=== PATIENT | male | born 1960 | race Caucasian/White ===

== ENCOUNTER 2016-08-13 17:13 | Inpatient (IN) ==
[2016-08-13] MEDS ORDERED: ASPIRIN PO STA (18:38)
[2016-08-13] MEDS ORDERED: G.I. COCKTAIL PO ONE (18:43)
[2016-08-13 18:44] LABS: URINE CULTURE NEEDED? NO; URINE MICRO REVIEW NEEDED? NO; URINE SOURCE CLEAN CATCH
[2016-08-13 18:52] LABS: BILIRUBIN URINE NEGATIVE (NEGATIVE); BLOOD URINE NEGATIVE (NEGATIVE); COLOR YELLOW; GLUCOSE URINE NEGATIVE (NEGATIVE); LEUKOCYTES URINE NEGATIVE (NEGATIVE); NITRITE URINE NEGATIVE (NEGATIVE); PH URINE 5.5; PROTEIN URINE NEGATIVE (NEGATIVE); SP GRAVITY URINE 1.006; TURBIDITY URINE CLEAR (CLEAR); UROBILINOGEN URINE NORMAL (NORMAL)
[2016-08-13 18:53] LABS: UR EPITHELIAL CELLS <10 /HPF (<10); URINE BACTERIA NEGATIVE /HPF; URINE RBC <10 /HPF (<10); URINE WBC <10 /HPF (<10)
[2016-08-13 19:29] LABS: AGAP 15; ALBUMIN 3.6 g/dL (3.5-5.0); ALKALINE PHOSPHATASE 86 U/L (32-122); BUN 16 mg/dL (8-22); CALCIUM 9.8 mg/dL (8.8-10.2); CHLORIDE 99 mmol/L (98-107); CK PROFILE 48 U/L (24-204); COSMO 266; GOT 15 U/L (10-34); GPT 18 U/L (10-44); POTASSIUM 4.3 mmol/L (3.5-5.1); SODIUM 132 mmol/L (136-145); TCO2 18 mmol/L (25-35); TOTAL BILIRUBIN 0.31 mg/dL (0.20-1.00); TOTAL PROTEIN 6.7 g/dL (6.3-8.3)
[2016-08-13 19:37] LABS: UR AMPHETAMINES QUAL NONE DETECTED (NONE DETECT); UR BARBITUATES QUAL NONE DETECTED (NONE DETECT); UR BENZODIAZEPIN QUAL NONE DETECTED (NONE DETECT); UR CANNABINOIDS QUAL NONE DETECTED (NONE DETECT); UR COCAINE QUAL NONE DETECTED (NONE DETECT); UR METHADONE QUAL NONE DETECTED (NONE DETECT); UR OPIATES QUAL NONE DETECTED (NONE DETECT); UR OXYCODONE QUAL NONE DETECTED (NONE DETECT); UR PCP QUAL NONE DETECTED (NONE DETECT)
[2016-08-13 19:48] LABS: ACETONE SERUM NEGATIVE (NEGATIVE)
[2016-08-13 20:21] LABS: BASO% 0.6 % (0.0-0.8); EOS# 0.23 X1000 (0.0-0.7); HEMATOCRIT 39.2 % (42.0-52.0); HEMOGLOBIN 13.5 g/dL (14.0-18.0); IMM GRAN# 0.07 X1000 (0.0-0.04); IMM GRAN% 0.6 % (0.0-0.5); LYMPH# 2.38 X1000 (1.2-3.4); LYMPH% 20.4 % (20.5-51.1); MANUAL DIFF NEEDED? YES; MCH 29.9 PG (27-31); MCHC 34.4 g/dL (33-37); MCV 86.9 FL (81-99); MONO# 0.69 X1000 (0.11-0.59); MONO% 5.9 % (1.7-9.3); MPV 9.9 FL (7.4-10.4); NEUT% 70.5 % (42.2-75.2); PLT 343 X1000 (130-400); RBC 4.51 XMIL (4.7-6.1)
[2016-08-13 20:28] LABS: INR 1.01; PROTIME 10.7 Seconds (9.2-11.7)
--- NOTE | 2016-08-13 20:29 | ED EKG INTERP ---
EKG Interpretation - EKG Time of EKG reading by physician:: 17:26 EKG Read and Signed by:: Wilber De Luna EKG Interpretation (*Must complete 3 of following elements*): Abnormal (RBBB) Rate: 107 Rhythm: Wide QRS rhythm with frequent PVC Attestation - Scribe Verification/Attestation Scribe:: Jassi Velasco Acting as Scribe for:: Wilber De Luna Scribe documention review:: This chart was documented by a scribe and accurately reflects the service the provider performed and the decisions made by the provider.
--- NOTE | 2016-08-13 20:57 | Diag Imaging Result Document ---
PROCEDURE NAME: HEAD W/O CONTRAST - 08/13/2016 STUDY: CT brain without contrast. PROTOCOL: Dose reduction protocol. No parenchymal hemorrhage. No epidural or subdural hematoma. No subarachnoid hemorrhage. No mass identified on this noncontrasted exam. No hydrocephalus. No sinus opacification. No air fluid levels. IMPRESSION: No hemorrhage. Negative brain CT without contrast. A preliminary report was given at 7:52 p.m.
[2016-08-13 21:21] LABS: BANDS 2 % (0-1); EOS 4 % (1-10); LYMPHS 16 % (21-51); MONO 2 % (1-9)
[2016-08-13 21:22] LABS: LARGE PLATELETS OCCASIONAL; POLYCHROM OCCASIONAL
--- NOTE | 2016-08-13 22:58 | PROVIDER DOCUMENTATION ---
HPI-Respiratory General - General Chief Complaint: B/P Problems Stated Complaint: Dizziness,Weakness,Low B/P Time Seen by Provider: 08/13/16 18:13 Source: patient, family Allergies/Adverse Reactions: Patient Allergies Allergy/AdvReac Type Severity Reaction Status Date / Time strawberry Allergy Mild SWELLING Verified 08/13/16 17:31 venom-honey bee Allergy Mild SWELLING Verified 08/13/16 17:31 [bee venom (honey bee)] Home Medications: Home Medication List Medication Instructions Recorded Confirmed Last Taken Type Carvedilol [Coreg] 12.5 mg PO BID 08/30/15 08/13/16 08/13/16 07:00 History Glipizide [Glipizide Xl] 5 mg PO DAILY 08/30/15 08/13/16 08/13/16 07:00 History LISINOpril [Prinivil] 10 mg PO HS 08/30/15 08/13/16 08/12/16 20:00 History Metformin HCl [Metformin HCl ER] 850 mg PO TID 08/30/15 08/13/16 08/13/16 12:00 History Carvedilol [Coreg] 12.5 mg PO BID 08/13/16 08/13/16 08/13/16 07:00 History Hum Insulin NPH/Reg Insulin Hm 25 units SQ DAILY 08/13/16 08/13/16 08/13/16 07: 00 History [Novolin 70-30 100 Unit/ml Vial] Lovastatin [Altoprev] 40 mg PO DAILY 08/13/16 08/13/16 08/12/16 20:00 History Sertraline HCl 50 mg PO DAILY 08/13/16 08/13/16 08/13/16 07:00 History - History of Present Illness-Resp Nature of Presenting Problem: 56 year old obese WM with c/o dizziness, lightheadedness, shortness of breath with exertion for 2 week. pt reports he was at work this evening and became weak , dizzy, lightheaded. the nurse with his employer took his BP and it was found to be in the 90-100 systolic. pt reports he was started on insulin for his DM 6 weeks ago and has had diarrhea since that time. pt also c/o headaches on a daily basis intermittent for a month. pt denies any new medications or changes. Quality of Pain: reports: dull (headache) Severity in ED: reports: mild (headache) Onset/Duration: reports: other (see HPI) Timing: reports: still present, constant, getting worse Exposure: reports: unknown cause Cough Quality/Degree: reports: no cough Review of Systems - Adult - REVIEW OF SYSTEMS - ADULT Constitutional: reports: no symptoms reported. denies: chills, fever, fatique Eyes: reports: no symptoms reported. denies: discharge, blurred vision, double vision Ears, Nose, Mouth & Throat: reports: no symptoms reported. denies: ear discharge, ear pain, nose pain, loose teeth, throat pain, throat swelling Cardiovascular: reports: see HPI, irregular heart rate, syncope (near syncope). denies: chest pain, edema, heart murmur, orthopnea, palpitations, poor circulation Respiratory: reports: see HPI, shortness of breath. denies: chronic cough, cough, wheezing Gastrointestinal: reports: see HPI, diarrhea. denies: abdominal pain, hematemesis, constipation, difficulty swallowing, frequent heartburn, nausea, poor appetite, rectal bleeding, vomiting Genitourinary: reports: no symptoms reported. denies: dysuria, hematuria, urgency Musculoskeletal: reports: no symptoms reported. denies: bone pain, joint pain, joint swelling, neck pain Integumentary: reports: no symptoms reported. denies: hives, itching, rash, skin sores/ulcer Neurological: reports: see HPI, dizziness/vertigo, headache/migraines. denies: ataxia, loss of balance, numbness, paresthesia, seizure, slurred speech, syncope , tremors Psychiatric: reports: no symptoms reported, depression Endocrine: reports: no symptoms reported Hematologic/Lymphatic: reports: no symptoms reported. denies: blood clots Allergic/Immunologic: reports: no symptoms reported All Other Systems: Reviewed and Negative Past History - Adult - PAST MEDICAL HISTORY-ADULT Review of Records: reports: Old Records Reviewed, Nursing Assessment Review, Medications Reviewed, Social history reviewed & non-contributory. Major Childhood Illnesses: reports: denies history Cardiovascular: reports: HTN Respiratory: reports: sleep apnea Gastrointestinal: reports: denies history Obstetrical/Gynecological: reports: denies history Genitourinary: reports: denies history Musculoskeletal: reports: denies history Neurological: reports: denies history Psychiatric: reports: depression Endocrine/Immune: reports: Diabetes Diabetes Type: Type 2 Diabetes controlled by:: PO Meds, Insulin Dependent Other Conditions: reports: denies history - PRIOR SURGERIES/PROCEDURES Surgical/Procedure History: reports: appendectomy - IMMUNIZATION STATUS Childhood Immunizations: See Nurse Assessment Flu Vaccine: See Nurse Assessment - FAMILY HISTORY Family History: diabetes, CAD over 55 yo, cancer, sudden , CAD under 55yo, HTN - SOCIAL HISTORY Smoking: quit greater than 1 year, secondhand Substance Use: none/never Alcohol Use Frequency: never Physical Exam-General - PHYSICAL EXAM-ADULT Initial Vital Signs Reviewed: Yes - CONSTITUTIONAL General Appearance: appears well, alert, no apparent distress, obese. negative : mild distress, moderate distress, severe distress, lethargic, slow to respond , obtunded, combative - EYES Eyes: pink conjunctivae. negative: conjuctival exudate, pale conjunctivae, photophobia, sclera injected, scleral icterus, subconjunctival hemorrhage - HEAD, EARS, NOSE, MOUTH & THROAT HENMT: normocephalic/atraumatic, moist mucous membranes, normal ENT inspection - NECK Neck: non-tender, full range of motion, supple, normal inspection. negative: C- spine tenderness, limited range of motion, tender lateral, tender midline - RESPIRATORY Respiratory: chest non-tender, lungs clear, normal breath sounds, no pleuratic chest pain, no respiratory distress, no accessory muscle use. negative: respiratory distress, decreased breath sounds, accessory muscle use, crackles, rales, rhonchi, stridor, wheezing - CARDIOVASCULAR Cardiovascular: normal peripheral pulses, regular rate, rhythm, no edema, no gallop, no JVD, no murmur, tachycardia, extra beats (intermittent trigeminy/ bigeminy, or frequent PVC's that are non-perfusing.). negative: bradycardia, diastolic murmur, systolic murmur, gallop/S3, gallop/S4 - CHEST (BREASTS) Chest/Breast: deferred - GASTROINTESTINAL (ABDOMEN) Abdominal Exam: normal bowel sounds, non tender, soft, no organomegaly, no pulsatile mass. negative: distended, guarding, rigid, rebound, tenderness, hernia, mass, hepatomegaly, spleenomegaly, McBurney's point tenderness, Nieto' s sign, obturator sign, psoas, Rovsing's sign - GENITOURINARY Male Genitalia: deferred Rectal Exam: deferred Hemoccult Exam: deferred - LYMPHATIC Lymphatic: no adenopathy - MUSCULOSKELETAL Back Exam: normal inspection, no CVA tenderness, no vertebral tenderness. negative: CVA tenderness, decreased range of motion, swelling, vertebral tenderness Extremity: normal range of motion, non-tender, normal gait, normal inspection, no pedal edema, no calf tenderness, normal capillary refill. negative: deformity, erythema, inflammation, pulse deficit, pedal edema, slow capillary refill, swelling, tenderness Peripheral Pulses: radial (R): 3+, radial (L): 3+, dorsalis-pedis (R): 3+, dorsalis-pedis (L): 3+ - SKIN Integumentary: normal color, normal turgor, warm/dry. negative: swelling, tenderness, warm - NEUROLOGIC Neurologic: grossly normal, no motor/sensory deficits. negative: focal weakness , motor weakness, sensory deficit, negative romberg's sign, positive romberg's sign - PSYCHIATRIC Psych/Mental Status: normal mood/affect, normal thought content, normal thought process, oriented x 3 Progress - PLAN OF CARE/RESULTS Progress/Plan/Lab Results: Orders Category Date Time Status Cardiac Monitoring DIRECTED Care 08/13/16 18:38 Active Orthostatic Vital Signs NOW Care 08/13/16 18:39 Active Saline Loc NOW Care 08/13/16 18:38 Active CHEST-2 VIEWS [RAD] Stat Exams 08/13/16 18:38 Taken HEAD W/O CONTRAST [CT] Stat Exams 08/13/16 18:39 Draft ACETONE SERUM [CHEM] Stat Lab 08/13/16 17:36 Completed BLOOD CULTURE [BLDCUL] Stat Lab 08/13/16 18:45 Results CBC WITH ELECTRONIC DIFF [HEME] Routine Lab 08/13/16 20:07 Completed CK PROFILE [SP CHEM] Stat Lab 08/13/16 17:36 Completed CK PROFILE [SP CHEM] Stat Lab 08/13/16 21:34 Completed COMPREHENSIVE METABOLIC PANEL [CHEM] Stat Lab 08/13/16 17:36 Completed D-DIMER [CHEM] Stat Lab 08/13/16 20:07 Completed LACTATE, PLASMA [CHEM] Stat Lab 08/13/16 18:45 Completed MAGNESIUM [CHEM] Stat Lab 08/13/16 17:36 Completed PRO B-NATRIURETIC PEPTIDE Stat Lab 08/13/16 17:36 Completed PROTIME WITH INR [COAG] Stat Lab 08/13/16 20:07 Completed PTT [COAG] Stat Lab 08/13/16 20:07 Completed TROPONIN T Stat Lab 08/13/16 17:36 Completed TROPONIN T Stat Lab 08/13/16 21:34 Completed UDS [URINE DRUG SCREEN] Stat Lab 08/13/16 18:43 Completed URINALYSIS W/POSS RFLX CULT [URINALYSIS] Stat Lab 08/13/16 18:29 Completed Aspirin Med 08/13/16 18:38 Discontinued 325 mg PO STAT STA Lido/Ramirez Alk/Al&mg Hydrox [G.i. Cocktail] Med 08/13/16 18:43 Discontinued 30 ml PO NOW ONE EKG [EKG] Stat Ther 08/13/16 18:38 Ordered Orders Category Date Time Status Cardiac Monitoring DIRECTED Care 08/13/16 18:38 Active Orthostatic Vital Signs NOW Care 08/13/16 18:39 Active Saline Loc NOW Care 08/13/16 18:38 Active CHEST-2 VIEWS [RAD] Stat Exams 08/13/16 18:38 Taken HEAD W/O CONTRAST [CT] Stat Exams 08/13/16 18:39 Draft ACETONE SERUM [CHEM] Stat Lab 08/13/16 17:36 Completed BLOOD CULTURE [BLDCUL] Stat Lab 08/13/16 18:45 Results CBC WITH ELECTRONIC DIFF [HEME] Routine Lab 08/13/16 20:07 Completed CK PROFILE [SP CHEM] Stat Lab 08/13/16 17:36 Completed CK PROFILE [SP CHEM] Stat Lab 08/13/16 21:34 Completed COMPREHENSIVE METABOLIC PANEL [CHEM] Stat Lab 08/13/16 17:36 Completed D-DIMER [CHEM] Stat Lab 08/13/16 20:07 Completed LACTATE, PLASMA [CHEM] Stat Lab 08/13/16 18:45 Completed MAGNESIUM [CHEM] Stat Lab 08/13/16 17:36 Completed PRO B-NATRIURETIC PEPTIDE Stat Lab 08/13/16 17:36 Completed PROTIME WITH INR [COAG] Stat Lab 08/13/16 20:07 Completed PTT [COAG] Stat Lab 08/13/16 20:07 Completed TROPONIN T Stat Lab 08/13/16 17:36 Completed TROPONIN T Stat Lab 08/13/16 21:34 Completed UDS [URINE DRUG SCREEN] Stat Lab 08/13/16 18:43 Completed URINALYSIS W/POSS RFLX CULT [URINALYSIS] Stat Lab 08/13/16 18:29 Completed Aspirin Med 08/13/16 18:38 Discontinued 325 mg PO STAT STA Lido/Ramirez Alk/Al&mg Hydrox [G.i. Cocktail] Med 08/13/16 18:43 Discontinued 30 ml PO NOW ONE EKG [EKG] Stat Ther 08/13/16 18:38 Ordered Vital Signs - 24 hr 08/13/16 08/13/16 08/13/16 17:13 18:01 19:05 Pulse Rate 80 140 H Pulse Rate [ 84 Sitting] Pulse Rate [ 90 Standing] Pulse Rate [ 78 Supine] Respiratory 17 26 H Rate Blood Pressure 147/92 131/72 Blood Pressure 145/68 [Sitting] Blood Pressure 122/60 [Standing] Blood Pressure 140/55 [Supine] O2 Sat by Pulse 99 98 Oximetry 08/13/16 08/13/16 20:15 22:15 Pulse Rate 112 H 90 Pulse Rate [ Sitting] Pulse Rate [ Standing] Pulse Rate [ Supine] Respiratory 20 17 Rate Blood Pressure 128/74 111/78 Blood Pressure [Sitting] Blood Pressure [Standing] Blood Pressure [Supine] O2 Sat by Pulse 97 98 Oximetry Reviewed radiology, lab, EKG, H&P with Dr. De Luna, agrees with plan of care, treatment and admission. - XRAY 1 XRAY Study: Chest Impression: Normal - CT/MRI 1 CT Study: Head Impression: Normal (per Dr. Murcia) - CONSULTS/PCP/HOSPITALIST Notification #1 *Consult/PCP/Hospitalist*: Dr. Aparicio Time Discussed: 22:52 Consult Disposition: Will see in ED, Admit Departure - Departure Time of Disposition Order: 22:52 DIAGNOSIS: Shortness of breath Disposition: ADMITTED INPATIENT 09 Certified Medical Emergency: Emergent Condition: Stable Referrals: Joseluis Baptiste [Primary Care Provider] - Attestation - Physician/ LULY Attestation Patient care was provided by Advanced Practice Provider:: Yes Advanced Practice Provider:: Triston Beebe Advanced Practice Provider documentation review:: The Mid-level provider documentation, treatment plan and medical decision making was reviewed by the physician who agrees with all treatment and medical decision making by the MLP.
[2016-08-14] MEDS ORDERED: HUMULIN R SUBQ ONE (02:48)
[2016-08-14] MEDS ORDERED: ZOFRAN IV PRN (02:48)
[2016-08-14] MEDS: TYLENOL PO PRN ×3 (03:01→17:59)
--- NOTE | 2016-08-14 03:50 | HISTORY AND PHYSICAL ---
PRIMARY CARE PHYSICIAN: Dr. Lisandro Baptiste. CHIEF COMPLAINT: Dizziness, shortness of breath, and chest pain x1 day. HISTORY OF PRESENTING ILLNESS: A 56-year-old male with a history of diabetes mellitus type 2, hypertension, and hyperlipidemia who had presented to the emergency department with the complaint of having some dizziness symptoms along with shortness of breath and chest discomfort. He states that it felt like his heart was racing and then had come back to normal. He was evaluated in the ER and due to his presenting symptoms, it was thought that he would need hospitalization for further management. At the time of my examination, he denied any headache, vision changes, nausea, vomiting, diarrhea, hemoptysis, or melena, but complained of chest discomfort and shortness of breath. PAST MEDICAL HISTORY: Includes diabetes mellitus type 2, hypertension, hyperlipidemia. PAST SURGICAL HISTORY: Appendectomy. ALLERGIES: No known drug allergies. CURRENT MEDICATIONS: Listed in the MAR. SOCIAL HISTORY: He is a former smoker. History of social alcohol use. Denies any illicit drug use. FAMILY HISTORY: Positive for coronary artery disease in father. REVIEW OF SYSTEMS: Twelve point review of systems listed as in HPI. Other systems negative. PHYSICAL EXAMINATION: GENERAL: Cooperative, friendly male. He is resting comfortably now. VITAL SIGNS: Pulse 140, respirations 26, blood pressure 131/72, he is saturating 98%. HEENT: Atraumatic, normocephalic. Extraocular movements intact. PERRLA. NECK: Supple. CHEST: Clear to auscultation. CARDIOVASCULAR: Regular rate and rhythm. ABDOMEN: Soft. Positive bowel sounds. EXTREMITIES: No edema. NEUROLOGIC: He is awake, alert, oriented x3. : No bladder distention. SKIN: Warm. LABORATORIES AND STUDIES: WBCs 11.65, hemoglobin 13.5, hematocrit 39.2, platelets 343,000. Sodium 132, potassium 4.3, chloride 99, CO2 is 18, BUN is 16, creatinine is 1.3, glucose is 101. Troponin is 0.01. ASSESSMENT: This is a 56-year-old male with a history of diabetes mellitus type 2, hypertension, and hyperlipidemia who had presented to the emergency department with a 1-day history of having dizziness, shortness of breath, and chest discomfort. The patient will need hospitalization for further management. 1. Chest pain. 2. Tachybrady syndrome. 3. Diabetes mellitus type 2. 4. Hypertension. PLAN: 1. We will admit patient to medical floor with telemetry. 2. Continue with cardiac workup. Check EKG, serial cardiac enzymes. Have patient on aspirin. We will use sublingual nitroglycerin and morphine p.r.n. chest pain. 3. We will consult cardiology for further evaluation of his symptoms. 4. Monitor blood glucose and continue patient on sliding scale insulin regimen. 5. Monitor blood pressure, resume antihypertensive agents. 6. Put patient on DVT prophylaxis with SCDs. 7. We will continue to follow and reassess.
--- NOTE | 2016-08-14 06:52 | Diag Imaging Result Document ---
PROCEDURE NAME: CHEST-2 VIEWS - 08/13/2016 FRONTAL AND LATERAL CHEST, 3 VIEWS: COMPARISON: 08/30/2015. FINDINGS: The lungs are well expanded. The heart is not enlarged. The vessels are not distended. No pneumonia. No pleural effusions. No free air beneath the diaphragm. IMPRESSION: No acute abnormality.
[2016-08-14] MEDS: PRILOSEC PO SCH (06:55)
[2016-08-14] MEDS: ASPIRIN PO SCH (08:30)
[2016-08-14] MEDS ORDERED: HUMALOG SUBQ ONE (09:51)
[2016-08-14] MEDS: HUMALOG SUBQ SCH ×3 (12:58→22:57)
[2016-08-14] MEDS ORDERED: LOVENOX SUBQ SCH (13:30)
--- NOTE | 2016-08-14 14:15 | CONSULTATION ---
DATE OF CONSULTATION: 08/14/2016 REQUESTING PHYSICIAN: Hospitalist Service REASON FOR CONSULTATION: The patient has dizziness, irregular heartbeat, palpitations, chest discomfort. HISTORY OF PRESENT ILLNESS: Mr. Farrar is a 56-year-old male who presents to the emergency room on 08/13/2016 complaining of recurrent episodes of palpitations, dizziness, profound lightheadedness. This has been happening for probably years according to him. However, over the course of the preceding few days prior to his presentation, this had become more noticeable. At the time of presentation, he reported that they had checked his pulse and blood pressure at the workplace, and they noted that his pulse was very irregular, fluctuating quite a bit. Upon presentation, his EKG shows sinus rhythm with very frequent PVCs. They became alarmed and decided to admit the patient to the hospital for further evaluation. His heart rate was probably 110 when he first hit the ER at 9:40 last night. He is feeling much better this morning. He has no additional complaints. PAST MEDICAL HISTORY: Positive for irregular heartbeat for a number of years. He had a cardiac evaluation about 4 years ago, reportedly had an abnormal stress test, and that led to a heart catheterization which was performed by Dr. Mcdonald on 08/09/2012. This study showed normal coronary arteries. He has diabetes mellitus type 2, history of hypertension, history of hyperlipidemia. PAST SURGICAL HISTORY: Positive for appendectomy. SOCIAL HISTORY: He lives by himself. He has been for 25 years. He has 2 grownup children, ages 32 and 27. He was working for [employer]; however, he was laid off about 2 years ago. 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 He has not smoked in over 40 years. He does not drink alcohol. FAMILY HISTORY: Father and a paternal uncle at the age of 49 from heart attacks. REVIEW OF SYSTEMS: He has been complaining of palpitations, dizziness of mild severity, intermittently over the years. The patient has been obese. He has been diagnosed with sleep apnea syndrome and has been using a CPAP mask for the past 2 years. He denies any other major issues on multiple review of systems. HOME MEDICATIONS: At the time of this admission included metformin 850 mg 3 times a day, lovastatin 40 mg daily, lisinopril 10 mg daily, glipizide 5 mg daily, carvedilol 12.5 twice a day, sertraline 50 mg daily, Humulin insulin 70/30 at 25 units daily. ALLERGIES: He is allergic to the honeybee and to strawberries. PHYSICAL EXAMINATION: Blood pressure is 126/100, temperature 97.8, pulse 82, respirations 18. He is obese, awake, alert, oriented, in no distress. The patient weighs 320 pounds. Body mass index is 43.4. HEENT is unremarkable. Chest is fairly clear to auscultation and percussion. Heart sounds are regular and rhythmic with PVCs or extrasystoles. His heart sounds are distant. I do not hear any murmur. Abdomen is obese. There is no hepatomegaly. No abnormalities noted in the abdominal wall. Extremities show good pulses, no edema. Neurologic: He moves all 4 extremities. Follows commands. DIAGNOSTIC DATA: He has had multiple troponin determinations, a total of 4, all of them negative. ProBNP is 164, being normal up to 177. BUN is 16, creatinine 1.3, sodium 132, potassium 4.3. Hemoglobin is 13.5, white count is 11,650. IMPRESSION: 1. The patient presented to the hospital with increasing dizziness and palpitations. He does have an abnormal electrocardiogram that shows sinus rhythm with a right bundle branch block and frequent PVCs. 2. History of hypertension. 3. History of sleep apnea syndrome. 4. Morbidly obese. 5. Diabetes mellitus type 2. RECOMMENDATIONS: At this point in time, we will go ahead and review the echocardiogram that was done this morning. I would suggest to double up on his carvedilol and add diltiazem 180 mg daily to control the PVCs that he is having. Since he had a normal coronary arteriogram about 4 years ago, there is no need to pursue any further testing to evaluate for ischemia. His symptoms have really nothing to do with coronary ischemia and probably relate to this arrhythmia that appears to be very pervasive. We will probably arrange for him to have 30-day DANETTE monitor and will follow him at the office upon discharge. Thank you again for the opportunity to participate in his evaluation. Best regards. MTDD
--- NOTE | 2016-08-14 15:27 | PROGRESS NOTE ---
DATE: 08/14/2016 SUBJECTIVE: The patient is complaining of having shortness of breath with ambulation and his reports having significant dyspnea on exertion. This has been going on for several weeks. No chest pain. OBJECTIVE: Vital Signs: Blood pressure 126/100, pulse of 82, respiration 97.8. General Appearance: Morbidly obese, white male in no acute distress as long as he is at rest. HEENT: Anicteric. Clear conjunctivae. Neck: Supple. No JVD. No bruits. Cardiovascular: S1, S2. Normal rate and rhythm. No murmurs, rubs, or gallops. Pulmonary: Clear to auscultation bilaterally. GI: Soft, nontender, nondistended. Normoactive bowel sounds. Musculoskeletal: No clubbing, cyanosis, or edema. LABORATORY: Sodium 132, potassium 4.3, chloride 99, bicarb 18, BUN 16, creatinine 1.3, glucose 103, calcium 9.8. Liver function tests were within normal limits. Troponin 3 sets were negative. Hematology: White count of 11.63, hemoglobin 13.5, hematocrit of 39.2, platelets of 343,000. RADIOLOGY: CT head was negative for any acute process. Chest x-ray showed no acute abnormalities. ASSESSMENT AND PLAN: This is a 56-year-old morbidly obese male admitted to the hospital for chest pain and dyspnea on exertion. 1. Chest pain and dyspnea on exertion. Troponin 3 sets were negative. The patient seems to be having tachybrady syndrome. Cardiology saw the patient and started him on beta litzy and calcium channel litzy. The patient reports having the echocardiogram in the emergency room. The report is yet available. We will continue to follow the report. If it has not been done he will need an echocardiogram. 2. Diabetes type 2. We will continue on sliding scale insulin. 3. Hyperlipidemia. Continue lovastatin. 4. Depression. Continue Zoloft. 5. Deep vein thrombosis prophylaxis. The patient is on Lovenox. 6. Code status. The patient is a full code.
--- NOTE | 2016-08-14 17:01 | ECHO REPORT ---
ORDER DATE: 08/14/2016 INTERPRETING PHYSICIAN: Dr. Torres REQUESTING PHYSICIAN: CLINICAL INDICATIONS: A 56-year-old male with chest pain, shortness of breath, dizziness, hypertension, hyperlipidemia, morbid obesity, sleep apnea, cardiac arrhythmia. M-MODE MEASUREMENTS: Right ventricle: 2.9 cm. Left ventricle end diastole: 4.8 cm. Left ventricle end systole: 3.0 cm. Posterior wall: 1.0 cm. Interventricular septum: 1.0 cm. Left atrium: 5.0 cm. Aortic root: 3.3 cm. SUMMARY OF 2-DIMENSIONAL IMAGING: The left ventricular chamber appears to be mildly enlarged. The global ejection fraction is estimated at 60%. There are frequent PVCs that make the estimation of ejection fraction somewhat challenging, however, the global ejection fraction is really normal. The right ventricle is within normal range. The aortic valve looks normal. Color flow mapping unremarkable. The mitral valve looks normal. Color flow mapping unremarkable. The tricuspid valve looks normal. Color flow mapping shows no significant regurgitation. The pulmonic valve looks normal. Color flow mapping unremarkable. The inferior vena cava was not visualized. There is no pericardial effusion, masses or thrombus. IMPRESSION: In summary, this study shows: 1. Normal left ventricular contractility. Ejection fraction 60% or better. Frequent PVCs noted. 2. Normal valvular structures. 3. Normal diastolic function. 4. Pulmonary pressure appears to be grossly normal. 5. No pericardial effusion, masses or thrombus. Clinical correlation recommended.
[2016-08-14] MEDS ORDERED: MAALOX PLUS LIQUID PO PRN (17:43)
[2016-08-14] MEDS ORDERED: MEVACOR PO SCH (21:00)
[2016-08-14] MEDS ORDERED: CARDIZEM CD PO SCH (21:00)
[2016-08-14] MEDS ORDERED: PRINIVIL PO SCH (21:00)
[2016-08-14] MEDS ORDERED: COREG PO SCH (21:00)
[2016-08-14] MEDS: COREG PO SCH (22:41)
[2016-08-15] MEDS: PRILOSEC PO SCH (06:06)
[2016-08-15 06:27] LABS: MANUAL DIFF NEEDED? NO
[2016-08-15] MEDS: HUMALOG SUBQ SCH (06:35)
[2016-08-15 06:42] LABS: AGAP 10; BUN 15 mg/dL (8-22); CALCIUM 9.2 mg/dL (8.8-10.2); CHLORIDE 102 mmol/L (98-107); COSMO 275; SODIUM 136 mmol/L (136-145); TCO2 24 mmol/L (25-35)
[2016-08-15 06:53] LABS: BASO% 0.5 % (0.0-0.8); EOS# 0.29 X1000 (0.0-0.7); EOS% 2.8 % (0.0-10.0); HEMATOCRIT 37.6 % (42.0-52.0); HEMOGLOBIN 12.5 g/dL (14.0-18.0); IMM GRAN# 0.03 X1000 (0.0-0.04); IMM GRAN% 0.3 % (0.0-0.5); LYMPH# 2.49 X1000 (1.2-3.4); LYMPH% 23.8 % (20.5-51.1); MCH 29.6 PG (27-31); MCHC 33.2 g/dL (33-37); MCV 88.9 FL (81-99); MONO# 0.77 X1000 (0.11-0.59); MONO% 7.4 % (1.7-9.3); MPV 10.4 FL (7.4-10.4); NEUT% 65.2 % (42.2-75.2); PLT 280 X1000 (130-400); RBC 4.23 XMIL (4.7-6.1)
--- NOTE | 2016-08-15 08:05 | EKG Report ---
Test Performed on : 08/15/2016 06:45:15 AM Test Reason : arrhythmia Blood Pressure : / mmHG Vent. Rate : 070 BPM Atrial Rate : 070 BPM P-R Int : 186 ms QRS Dur : 138 ms QT Int : 442 ms P-R-T Axes : 066 104 017 degrees QTc Int : 477 ms Sinus rhythm. with occasional premature ventricular complexes. Right bundle branch block Abnormal ECG When compared with ECG of 13-AUG-2016 17:26, (Unconfirmed) Sinus rhythm. has replaced Wide QRS rhythm. Vent. rate has decreased BY 37 BPM Confirmed by Cornelio DELUCA, Jaquan Fields ([id number]) on 08/15/2016 4:26:41 PM
[2016-08-15] MEDS: ASPIRIN PO SCH (08:09)
[2016-08-15] MEDS: COREG PO SCH (08:09)
[2016-08-15] MEDS: TYLENOL PO PRN (08:09)
[2016-08-15] MEDS ORDERED: ZOLOFT PO SCH (09:00)
[2016-08-15 09:09] VITALS: BP 110/52
--- NOTE | 2016-08-15 09:32 | EKG Report ---
Test Performed on : 08/13/2016 5:26:23 PM Test Reason : Chest Pain Blood Pressure : / mmHG Vent. Rate : 107 BPM Atrial Rate : 066 BPM P-R Int : 000 ms QRS Dur : 134 ms QT Int : 366 ms P-R-T Axes : 000 104 010 degrees QTc Int : 488 ms Wide QRS rhythm. with frequent premature ventricular complexes. Right bundle branch block Abnormal ECG When compared with ECG of 30-AUG-2015 15:29, Wide QRS rhythm. has replaced Sinus rhythm. Unconfirmed Result
--- NOTE | 2016-08-15 09:38 | PROGRESS NOTE ---
DATE: 08/15/2016 CHIEF COMPLAINT: Dizziness, irregular heartbeat. SUBJECTIVE: Mr. Farrar had an uneventful night. 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 EKG this morning shows sinus rhythm with an isolated PVC. He does have a right bundle branch block pattern. OBJECTIVE: Blood pressure today is 107/50, temperature 98.5, pulse 59, respirations 20. He is awake, alert and oriented, in no distress. HEENT is unremarkable. Chest is clear to auscultation and percussion. Heart sounds are regular and rhythmic. No gallop or murmur. Abdomen is obese, nontender. No mass or hepatomegaly. Extremities showed good pulses. No edema. Neurologic: He moves all 4 extremities. DIAGNOSTIC DATA: Sodium is 136, potassium 4.0, BUN is 15, creatinine 1.2. IMPRESSION: 1. The patient presented with dizziness and palpitations. 2. Abnormal electrocardiogram. 3. Sleep apnea. 4. Morbid obesity. 5.hypertension RECOMMENDATIONS: The patient had frequent PVCs noted. Echocardiogram has been reviewed, and it shows normal left ventricular function. At this point in time, my recommendation is to add Cardizem CD 180 mg to his regimen plus carvedilol 25 mg twice a day and discontinue lisinopril. We will follow him at the office. We will provide him with a 30-day CEV monitor to monitor him at home, and then further intervention will depend on his clinical course. I do not believe this patient is at risk of sudden . We will follow him along. [facility]
--- NOTE | 2016-08-15 10:03 | EKG Report ---
Test Performed on : 08/13/2016 9:44:49 PM Test Reason : ED. Not ordered in [place] Blood Pressure : / mmHG Vent. Rate : 111 BPM Atrial Rate : 036 BPM P-R Int : 000 ms QRS Dur : 134 ms QT Int : 374 ms P-R-T Axes : 000 119 002 degrees QTc Int : 508 ms Wide QRS rhythm. with frequent premature ventricular complexes. Right bundle branch block Left posterior fascicular block Bifascicular block Abnormal ECG No previous ECGs available Unconfirmed Result
--- NOTE | 2016-08-16 09:22 | DISCHARGE SUMMARY ---
ADMISSION DATE: 08/14/2016 DISCHARGE DATE: 08/15/2016 CONSULTATION: Dr. Torres with cardiology. PERTINENT PROCEDURES: Head CT showed no hemorrhage. Negative brain CT. Echocardiogram showed an EF of 60% or better, frequent PVCs noted. DISCHARGE DIAGNOSES: 1. Chest pain and dyspnea on exertion, myocardial infarction ruled out with negative troponin. 2. Palpitations with frequent premature ventricular contractions. Echocardiogram has been reviewed by cardiology. It showed normal left ventricular function. Cardiology recommend Cardizem CD 180 as well as carvedilol b.i.d. and discontinue his lisinopril. Follow him in the office in 30 days and provide him with a cardiac event monitor at his home. 3. Diabetes mellitus type 2. 4. Hyperlipidemia. Continue statin. 5. Depression. Continue Zoloft. HOSPITAL COURSE: Briefly, Mr. Farrar is a 56-year-old male with a history of diabetes mellitus type 2, hypertension, hyperlipidemia, presented to the ED with complaints of having dizziness symptoms along with shortness of breath and chest discomfort. He felt like his heart was racing and then it would come back to normal. He was evaluated in the ED and felt that he needed to be observed for further workup. He was admitted to the medical floor with a cardiology consult. The patient was ruled out for OR with serial cardiac enzymes. Cardiology did an echocardiogram that did show an EF of 60% or better with frequent PVCs noted. Their recommendations were added Cardizem CD 180 mg to his regimen plus carvedilol 25 mg p.o. twice a day and discontinue his lisinopril and follow up in the office and they would provide him with a 30 day cardiac event monitor at his home. Overnight his monitor showed no significant arrhythmia. EKG this a.m. shows sinus rhythm with isolated PVCs. He does have a right bundle branch block pattern. Dr. Stephens has assessed the patient and feels that he is appropriate for discharge home today. DISCHARGE EXAMINATION: Vital signs: Temperature is 98 degrees, respirations 20, heart rate 68, blood pressure is 110/52, O2 is 97% on room air. DISCHARGE MEDICATIONS: 1. Glipizide XL 5 mg p.o. daily. 2. Metformin 850 mg p.o. t.i.d. 3. Novolin 70/30 25 units subcutaneously daily. 4. Lovastatin 40 mg p.o. daily. 5. Zoloft 50 mg p.o. daily. 6. Cardizem CD 180 mg p.o. q.p.m. 7. Coreg 25 mg p.o. b.i.d. 8. Topamax 25 mg p.o. daily. FOLLOWUP: The patient is being discharged home. He will follow up with cardiology in the outpatient setting. They will also send him a 30 day cardiac event monitor. He can follow up with his primary care physician, Dr. Joseluis Baptiste Jr, in 2 weeks. He can return to the ED for any worsening of symptoms. DISCHARGE TIME: Greater than 30 minutes. Dictated by YAMILE Resendiz for Kaylene Stephens MD
== END 2016-08-15 12:24 | disposition home or self-care (01) | DRG 309 ==
LOC: EDBD → ED 17:13 → OBSVTOIN 08-14 06:02 → 4N 08-14 06:02
PROVIDERS: ATTEND Internal Medicine
DX: I49.3 Ventricular premature depolarization (principal); Z68.41 Body mass index [BMI] 40.0-44.9, adult; I10 Essential (primary) hypertension; E66.01 Morbid (severe) obesity due to excess calories; E11.9 Type 2 diabetes mellitus without complications; I45.10 Unspecified right bundle-branch block; E78.5 Hyperlipidemia, unspecified; G47.30 Sleep apnea, unspecified; F32.9 Major depressive disorder, single episode, unspecified; Z79.899 Other long term (current) drug therapy; Z79.84 Long term (current) use of oral hypoglycemic drugs; Z79.4 Long term (current) use of insulin; Z87.891 Personal history of nicotine dependence; Z82.49 Family history of ischemic heart disease and other diseases of the circulatory system
CPT/HCPCS: 36415; 70450; 71020; 80048; 80053; 81001; 82009; 82550; 82948; 83605; 83735; 83880; 84484; 85025; 85379; 85610; 85730; 87040; 93005; 93010; 93306; G0480; J1650; J1815; 80324; 80345; 80346; 80349; 80353; 80358; 80361; 80365; 83992

== ENCOUNTER 2019-01-17 13:27 | Observation (INO) ==
[2019-01-17] MEDS ORDERED: ZOFRAN IV ONE (14:15)
[2019-01-17] MEDS ORDERED: NS 1,000 ML IV ONE ×2 (14:15→16:27)
[2019-01-17] MEDS ORDERED: TORADOL IV ONE (14:15)
[2019-01-17 14:51] LABS: ALLEN TEST YES; BE -2.9 mmoll (-3.0-3.0); BLOOD TYPE ARTERIAL; HCO3-(ACT) 22.6 mmoll (20.0-26.0); METHB 0.8 % (0.0-1.5); O2(CT) 20.9 mL/dL (15.0-23.0); O2HB 94.7 % (95.0-99.0); PCO2(98.6) 34 mmHg (35-45); PO2(98.6) 81 mmHg (60-100); SAMPLE BLOOD; SAO2 96.7 % (95.0-100.0); THB 15.7 g/dL (11.5-17.4)
[2019-01-17 14:52] LABS: MODALITY ROOM AIR
[2019-01-17 14:55] LABS: URINE SOURCE CLEAN CATCH
[2019-01-17 14:58] LABS: INR 0.99; PROTIME 13.2 Seconds (11.0-16.0); PTT 25.2 Seconds (22.3-41.8)
[2019-01-17 15:09] LABS: AGAP 15; ALB/GLOB RATIO 1.4; ALBUMIN 4.2 g/dL (3.5-5.0); ALKALINE PHOSPHATASE 118 U/L (32-122); BUN 18 mg/dL (8-22); CALCIUM 9.9 mg/dL (8.8-10.2); CHLORIDE 99 mmol/L (98-107); CK PROFILE 46 U/L (24-204); COSMO 284; CREATININE 1.4 mg/dL (0.7-1.2); ESTIMATED GFR 52; GLUCOSE 316 mg/dL (70-104); GOT 17 U/L (10-34); GPT 23 U/L (10-44); LIPASE 42 U/L (13-60); MAGNESIUM 1.9 mg/dL (1.5-2.7); POTASSIUM 4.4 mmol/L (3.5-5.1); SODIUM 135 mmol/L (136-145); TCO2 21 mmol/L (25-35); TOTAL BILIRUBIN 0.59 mg/dL (0.20-1.00); TOTAL PROTEIN 7.3 g/dL (6.3-8.3)
--- NOTE | 2019-01-17 15:10 | Diag Imaging Result Doc PS360 ---
EXAM: CT HEAD W/O CONTRAST INDICATION: headache TECHNIQUE: This exam was performed using automated exposure control, adjustment of mA or kV according to patient size, and/or use of iterative reconstruction technique. COMPARISON: 08/13/2016 FINDINGS: There is no definite acute infarct given the limited sensitivity of CT versus MRI. There is no discrete intracranial mass, mass effect, or intracranial hemorrhage. There is trace chronic sphenoid sinus mucosal thickening. Surrounding soft tissues and bony structures are essentially unremarkable, otherwise. IMPRESSION: No evidence of acute intracranial pathology. Electronically signed by Ran Haddad 01/17/2019 3:08 PM
[2019-01-17 15:11] LABS: BILIRUBIN URINE NEGATIVE (NEGATIVE); BLOOD URINE NEGATIVE (NEGATIVE); COLOR YELLOW; GLUCOSE URINE 300 mg/dL (NEGATIVE); KETONE URINE NEGATIVE (NEGATIVE); LEUKOCYTES URINE NEGATIVE (NEGATIVE); NITRITE URINE NEGATIVE (NEGATIVE); PROTEIN URINE 50 mg/dL (NEGATIVE); SP GRAVITY URINE 1.027; TURBIDITY URINE CLEAR (CLEAR); UR EPITHELIAL CELLS <10 /HPF (<10); URINE BACTERIA NEGATIVE /HPF; URINE RBC <10 /HPF (<10); URINE WBC <10 /HPF (<10); UROBILINOGEN URINE NORMAL (NORMAL)
[2019-01-17 15:19] LABS: BASO# 0.05 X1000 (0.0-0.2); BASO% 0.6 % (0.0-0.8); EOS# 0.15 X1000 (0.0-0.7); EOS% 1.8 % (0.0-10.0); HEMATOCRIT 43.3 % (42.0-52.0); HEMOGLOBIN 14.7 g/dL (14.0-18.0); IMM GRAN# 0.02 X1000 (0.0-0.04); IMM GRAN% 0.2 % (0.0-0.5); LYMPH# 2.07 X1000 (1.2-3.4); LYMPH% 24.9 % (20.5-51.1); MCH 29.5 PG (27-31); MCHC 33.9 g/dL (33-37); MCV 86.9 FL (81-99); MONO# 0.64 X1000 (0.11-0.59); MONO% 7.7 % (1.7-9.3); MPV 10.3 FL (7.4-10.4); NEUT# 5.37 X1000 (1.4-6.5); NEUT% 64.8 % (42.2-75.2); PLT 297 X1000 (130-400); RBC 4.98 XMIL (4.7-6.1); RDW 13.7 % (11.5-14.5)
--- NOTE | 2019-01-17 15:29 | Diag Imaging Result Doc PS360 ---
EXAM: FLAT/UPRIGHT ABD/1 VIEW CHEST INDICATION: vomiting, diarrhea and SOB TECHNIQUE: 4 views COMPARISON: 08/13/2016 FINDINGS: There are unremarkable bowel gas and stool patterns. There is no obstructive bowel pattern. There is no evidence of large volume free abdominal gas. There is no evidence of organomegaly. The lungs are grossly clear. There is no discrete pleural fluid collection or pneumothorax. The cardiomediastinal silhouette and central vasculature are grossly unremarkable. IMPRESSION: No evidence of acute pathology by plain radiograph. Electronically signed by Ran Haddad 01/17/2019 3:27 PM
[2019-01-17 15:30] LABS: ACETONE SERUM NEGATIVE (NEGATIVE)
--- NOTE | 2019-01-17 16:15 | EKG Report ---
Test Performed on : 01/17/2019 4:11:51 PM Test Reason : short of breath Blood Pressure : / mmHG Vent. Rate : 069 BPM Atrial Rate : 069 BPM P-R Int : 186 ms QRS Dur : 136 ms QT Int : 440 ms P-R-T Axes : 055 120 048 degrees QTc Int : 471 ms Normal sinus rhythm. Right bundle branch block Left posterior fascicular block Bifascicular block Abnormal ECG When compared with ECG of 01-JUN-2018 15:13, premature ventricular complexes. are no longer present Unconfirmed Result
[2019-01-17] MEDS ORDERED: ZOSYN 4.5 GM in NS 100 ML IV ONE (16:27)
[2019-01-17] MEDS ORDERED: HUMULIN R IV ONE (16:27)
--- NOTE | 2019-01-17 19:02 | PROVIDER DOCUMENTATION ---
This chart was entered by Nick De Luna Scribe, acting as scribe for Preet Alatorre MD. HPI-General Adult - General Source: patient - History of Present Illness -Gen Adult Nature of Presenting Problems: 58 y/o male presents to ED with constant frontal headache, N/V/D, periumbilical pain, subjective fever, chills, and SOB onset 10 days ago. Pt reports he has been unable to keep anything down. Pt denies hx migraines. Pt states he has taken OTC pain relief medications with minimal relief from his symptoms. Pt reports exertion exacerbates his symptoms. Pt states he has extensive family hx NM and he has not had a stress test in several years. Pt is alert and oriented. Location of Pain/Injury: reports: head, abdomen Pain Radiation: reports: no radiation Quality of Pain: reports: aching Severity: reports: mild Onset/Duration: reports: other (10 days ago) Timing: reports: still present Context/Activities at Onset: reports: none Modifying Factors: worse with: exercise Associated Symptoms: reports: diarrhea, fever/chills, headaches, nausea, shortness of breath, vomiting, other (periumbilical pain) Similar Symptoms Previously?: No Recently seen or treated by another doctor?: No <Preet Alatorre - Last Filed: 01/17/19 19:01> <Zachary Toney - Last Filed: 01/17/19 20:46> - General Chief Complaint: General Adult Stated Complaint: CARDOZA,VOMITING,DIARRHEA,NO ENERGY Time Seen by Provider: 01/17/19 13:39 Allergies/Adverse Reactions: Patient Allergies Allergy/AdvReac Type Severity Reaction Status Date / Time strawberry Allergy Mild SWELLING Verified 01/17/19 14:27 venom-honey bee Allergy Mild SWELLING Verified 01/17/19 14:27 [bee venom (honey bee)] Home Medications: Home Medication List Medication Instructions Recorded Confirmed Last Taken Type Glipizide [Glipizide Xl] 5 mg PO DAILY 08/30/15 06/01/18 08/13/16 07:00 History Metformin HCl [Metformin ER 850 mg PO TID 08/30/15 06/01/18 08/13/16 12:00 History Osmotic] Hum Insulin NPH/Reg Insulin Hm 30 units SQ HS 08/13/16 06/01/18 08/13/16 07:00 History [Novolin 70-30 100 Unit/ml Vial] Lovastatin [Altoprev] 40 mg PO DAILY 08/13/16 06/01/18 08/12/16 20:00 History Sertraline HCl 50 mg PO DAILY 08/13/16 06/01/18 08/13/16 07:00 History Carvedilol [Coreg] 25 mg PO BID #60 tablet 08/15/16 06/01/18 Unknown Rx Diltiazem C.d. [Cardizem Cd] 180 mg PO QPM #30 capsule 08/15/16 06/01/18 Unknown Rx Lisinopril 10 mg PO DAILY 06/01/18 06/01/18 Unknown History Cyclobenzaprine [Flexeril] 10 mg PO Q8H PRN #12 tab 08/29/18 Unknown Rx Ibuprofen [Motrin] 400 mg PO Q6H PRN PRN #20 tab 08/29/18 Unknown Rx Methocarbamol [Robaxin-750] 750 mg PO Q4H PRN #15 tab 09/19/18 Unknown Rx Review of Systems - Adult - REVIEW OF SYSTEMS - ADULT Constitutional: reports: chills, fever Eyes: reports: no symptoms reported Ears, Nose, Mouth & Throat: reports: no symptoms reported Cardiovascular: denies: chest pain, palpitations Respiratory: reports: dyspnea on exertion (pt reports it has not worsened over the past several years), shortness of breath. denies: cough Gastrointestinal: reports: abdominal pain (periumbilical), diarrhea, nausea, vomiting Genitourinary: reports: no symptoms reported Musculoskeletal: denies: back pain, joint pain Integumentary: reports: no symptoms reported Neurological: reports: headache/migraines. denies: dizziness/vertigo, seizure Psychiatric: reports: no symptoms reported Endocrine: reports: no symptoms reported Hematologic/Lymphatic: reports: no symptoms reported Allergic/Immunologic: reports: no symptoms reported All Other Systems: Reviewed and Negative <Preet Alatorre - Last Filed: 01/17/19 19:01> Past History - Adult - PAST MEDICAL HISTORY-ADULT Review of Records: reports: Old Records Reviewed, Nursing Assessment Review, Medications Reviewed Major Childhood Illnesses: reports: denies history Cardiovascular: reports: A-Fib, HTN Respiratory: reports: sleep apnea Gastrointestinal: reports: GERD Obstetrical/Gynecological: reports: denies history Genitourinary: reports: denies history Musculoskeletal: reports: denies history Neurological: reports: denies history Psychiatric: reports: anxiety, depression Endocrine/Immune: reports: Diabetes Other Conditions: reports: denies history - PRIOR SURGERIES/PROCEDURES Surgical/Procedure History: reports: appendectomy - IMMUNIZATION STATUS Childhood Immunizations: See Nurse Assessment Flu Vaccine: See Nurse Assessment - FAMILY HISTORY Family History: diabetes, CAD over 55 yo, cancer, sudden , CAD under 55yo, HTN - SOCIAL HISTORY Smoking: quit greater than 1 year Substance Use: none/never Alcohol Use Frequency: never Living Situation: family <Preet Alatorre - Last Filed: 01/17/19 19:01> Physical Exam-General - PHYSICAL EXAM-ADULT Initial Vital Signs Reviewed: Yes - CONSTITUTIONAL General Appearance: appears well, alert, no apparent distress - EYES Eyes: PERRL/EOMI, pink conjunctivae - HEAD, EARS, NOSE, MOUTH & THROAT HENMT: moist mucous membranes, dental decay - NECK Neck: non-tender, full range of motion - RESPIRATORY Respiratory: chest non-tender, lungs clear, normal breath sounds, no pleuratic chest pain, no respiratory distress, no accessory muscle use, increased rate, other (visibly short of breath without respiratory distress) - CARDIOVASCULAR Cardiovascular: normal peripheral pulses, regular rate, rhythm - GASTROINTESTINAL (ABDOMEN) Abdominal Exam: normal bowel sounds, non tender, soft, other (nausea with palpation) - MUSCULOSKELETAL Back Exam: normal inspection, no CVA tenderness, no vertebral tenderness Extremity: normal range of motion, non-tender, normal gait, swelling (1 + pitting edema of bilateral lower extremities) - SKIN Integumentary: normal color, swelling (1 + pitting edema of bilateral lower extremities), other (clammy skin) - NEUROLOGIC Neurologic: grossly normal - PSYCHIATRIC Psych/Mental Status: normal mood/affect, normal thought content, normal thought process, oriented x 3 <Preet Alatorre - Last Filed: 01/17/19 19:01> Progress - PLAN OF CARE/RESULTS Progress/Plan/Lab Results: Vital Signs - 8 hr 01/17/19 13:29 Temperature 98.0 F Pulse Rate 89 Respiratory Rate 20 Blood Pressure 141/89 O2 Sat by Pulse Oximetry 97 Laboratory Results - last 24 hr 01/17/19 13:34 POC Glucose 298 H Active Orders 24 hr Category Date Time Status ED: Orthostatic Vital Signs (E as directed Care 01/17/19 14:17 Active Nursing- Obtain EKG once Care 01/17/19 14:12 Active Saline Loc NOW Care 01/17/19 14:12 Active EKG [EKG] Stat Ther 01/17/19 14:12 Ordered 01/17/19 14:52 Influenza Screen - Final Nasopharyngeal Laboratory Results - last 24 hr 01/17/19 01/17/19 01/17/19 13:34 14:35 14:35 WBC RBC Hgb Hct MCV MCH MCHC RDW Std Deviation Plt Count MPV Immature Gran % (Auto) Neut % (Auto) Lymph % (Auto) Kidder % (Auto) Eos % (Auto) Baso % (Auto) Immature Gran # (Auto) Neut # (Auto) Lymph # (Auto) Kidder # (Auto) Eos # (Auto) Baso # (Auto) PT INR PTT (Actin FS) Specimen Type Sample Site pH pCO2 pO2 HCO3 Base Excess Oxyhemoglobin ABG O2 Sat (Calculated) ABG O2 Saturation ABG Carboxyhemoglobin ABG Methemoglobin Jaquan Test A-a O2 Difference Total Hemoglobin Lactate Blood Gas Modality FiO2 % Sodium Potassium Chloride Carbon Dioxide Anion Gap BUN Creatinine Estimated GFR/1.73 m2 BUN/Creatinine Ratio Glucose POC Glucose 298 H Calculated Osmolality Calcium Magnesium Total Bilirubin AST ALT Alkaline Phosphatase Creatine Kinase Troponin T Wvf-A-Kqejbwuyhdr Pept Total Protein Albumin Globulin Albumin/Globulin Ratio Lipase Plasma Lactate 2.6 H TSH 4.74 H Urine Source Urine Color Urine Turbidity Urine pH Ur Specific [place] Urine Protein Ur Glucose (Stick) Ur Ketones (Stick) Urine Blood Urine Nitrite Urine Bilirubin Urobilinogen Dipstick Urine Leukocytes Urine WBC (Auto) Urine RBC (Auto) U Epithel Cells (Auto) Urine Bacteria (Auto) Acetone Level 01/17/19 01/17/19 01/17/19 14:39 14:39 14:39 WBC 8.30 RBC 4.98 Hgb 14.7 Hct 43.3 MCV 86.9 MCH 29.5 MCHC 33.9 RDW Std Deviation 13.7 Plt Count 297 MPV 10.3 Immature Gran % (Auto) 0.2 Neut % (Auto) 64.8 Lymph % (Auto) 24.9 Kidder % (Auto) 7.7 Eos % (Auto) 1.8 Baso % (Auto) 0.6 Immature Gran # (Auto) 0.02 Neut # (Auto) 5.37 Lymph # (Auto) 2.07 Kidder # (Auto) 0.64 H Eos # (Auto) 0.15 Baso # (Auto) 0.05 PT INR PTT (Actin FS) Specimen Type Sample Site pH pCO2 pO2 HCO3 Base Excess Oxyhemoglobin ABG O2 Sat (Calculated) ABG O2 Saturation ABG Carboxyhemoglobin ABG Methemoglobin Jaquan Test A-a O2 Difference Total Hemoglobin Lactate Blood Gas Modality FiO2 % Sodium 135 L Potassium 4.4 Chloride 99 Carbon Dioxide 21 L Anion Gap 15 BUN 18 Creatinine 1.4 H Estimated GFR/1.73 m2 52 BUN/Creatinine Ratio 13 Glucose 316 H POC Glucose Calculated Osmolality 284 Calcium 9.9 Magnesium 1.9 Total Bilirubin 0.59 AST 17 ALT 23 Alkaline Phosphatase 118 Creatine Kinase 46 Troponin T Pcq-O-Eknaqxobvlx Pept 25 Total Protein 7.3 Albumin 4.2 Globulin 3.1 Albumin/Globulin Ratio 1.4 Lipase 42 Plasma Lactate TSH Urine Source Urine Color Urine Turbidity Urine pH Ur Specific [place] Urine Protein Ur Glucose (Stick) Ur Ketones (Stick) Urine Blood Urine Nitrite Urine Bilirubin Urobilinogen Dipstick Urine Leukocytes Urine WBC (Auto) Urine RBC (Auto) U Epithel Cells (Auto) Urine Bacteria (Auto) Acetone Level NEGATIVE 01/17/19 01/17/19 01/17/19 14:39 14:39 14:42 WBC RBC Hgb Hct MCV MCH MCHC RDW Std Deviation Plt Count MPV Immature Gran % (Auto) Neut % (Auto) Lymph % (Auto) Kidder % (Auto) Eos % (Auto) Baso % (Auto) Immature Gran # (Auto) Neut # (Auto) Lymph # (Auto) Kidder # (Auto) Eos # (Auto) Baso # (Auto) PT 13.2 INR 0.99 PTT (Actin FS) 25.2 Specimen Type ARTERIAL Sample Site L RADIAL pH 7.40 pCO2 34 L pO2 81 HCO3 22.6 Base Excess -2.9 Oxyhemoglobin 94.7 L ABG O2 Sat (Calculated) 20.9 ABG O2 Saturation 96.7 ABG Carboxyhemoglobin 1.30 ABG Methemoglobin 0.8 Jaquan Test YES A-a O2 Difference 26.0 Total Hemoglobin 15.7 Lactate 2.80 H Blood Gas Modality ROOM AIR FiO2 % 21.0 Sodium Potassium Chloride Carbon Dioxide Anion Gap BUN Creatinine Estimated GFR/1.73 m2 BUN/Creatinine Ratio Glucose POC Glucose Calculated Osmolality Calcium Magnesium Total Bilirubin AST ALT Alkaline Phosphatase Creatine Kinase Troponin T < 0.010 Ysq-X-Zpsfoacemcv Pept Total Protein Albumin Globulin Albumin/Globulin Ratio Lipase Plasma Lactate TSH Urine Source Urine Color Urine Turbidity Urine pH Ur Specific [place] Urine Protein Ur Glucose (Stick) Ur Ketones (Stick) Urine Blood Urine Nitrite Urine Bilirubin Urobilinogen Dipstick Urine Leukocytes Urine WBC (Auto) Urine RBC (Auto) U Epithel Cells (Auto) Urine Bacteria (Auto) Acetone Level 01/17/19 14:49 WBC RBC Hgb Hct MCV MCH MCHC RDW Std Deviation Plt Count MPV Immature Gran % (Auto) Neut % (Auto) Lymph % (Auto) Kidder % (Auto) Eos % (Auto) Baso % (Auto) Immature Gran # (Auto) Neut # (Auto) Lymph # (Auto) Kidder # (Auto) Eos # (Auto) Baso # (Auto) PT INR PTT (Actin FS) Specimen Type Sample Site pH pCO2 pO2 HCO3 Base Excess Oxyhemoglobin ABG O2 Sat (Calculated) ABG O2 Saturation ABG Carboxyhemoglobin ABG Methemoglobin Jaquan Test A-a O2 Difference Total Hemoglobin Lactate Blood Gas Modality FiO2 % Sodium Potassium Chloride Carbon Dioxide Anion Gap BUN Creatinine Estimated GFR/1.73 m2 BUN/Creatinine Ratio Glucose POC Glucose Calculated Osmolality Calcium Magnesium Total Bilirubin AST ALT Alkaline Phosphatase Creatine Kinase Troponin T Vky-A-Rlcvkcnmpcf Pept Total Protein Albumin Globulin Albumin/Globulin Ratio Lipase Plasma Lactate TSH Urine Source CLEAN CATCH Urine Color YELLOW Urine Turbidity CLEAR Urine pH 6.0 Ur Specific [place] 1.027 Urine Protein 50 A Ur Glucose (Stick) 300 A Ur Ketones (Stick) NEGATIVE Urine Blood NEGATIVE Urine Nitrite NEGATIVE Urine Bilirubin NEGATIVE Urobilinogen Dipstick NORMAL Urine Leukocytes NEGATIVE Urine WBC (Auto) <10 Urine RBC (Auto) <10 U Epithel Cells (Auto) <10 Urine Bacteria (Auto) NEGATIVE Acetone Level Influenza A and B are negative. The orthostatic vital signs were positive. Result Diagrams: 01/17/19 14:39 01/17/19 14:39 - REASSESSMENT Reassessment #1 Time Reassessed: 16:33 Status: improving (States feels better, but lactate is 2.8 and BP is 91/50 with him siting in bed. Will give a second IVF bolus and check CT A/P. He has been cultured, has a sinus infection, but will give Zosyn for likely GI cause of illness.) Reassessment Comment: No SIRS criteria, lactate elevation likely d/t metformin use - EKG 1 Time of EKG reading by physician:: 16:21 EKG Read and Signed by:: Preet Alatorre EKG Interpretation (*Must complete 3 of following elements*): Abnormal Rate: 69 Rhythm: NSR [place]: normal QRS: RBB, other (L posterior fascicular block; bifascicular block) DC Interval: normal ST Wave: normal Prior EKG Comparison: changes noted (Improved from prior. 06/01/18. -Dr. Alatorre) Comments: Artifact present. -Dr. Alatorre - XRAY 1 XRAY Study: Abdomen Impression: See EMR Report ([facility] - [address] [facility], [address], [place] [address] [facility] - [address] [place] [address] Department of Imaging Patient: MONA RAMIREZ [facility] Date: 01/17/19#: [id number] : 1960DM Status: REG ERAcct#: [id number] Age/Sex: 58/MRoom/Bed: Loc: ED Ordering Physician: Preet Alatorre MD Family Physician: Joseluis Baptiste Jr, MD Reason for Procedure: vomiting, diarrhea and SOB Signed EXAM: FLAT/UPRIGHT ABD/1 VIEW CHEST INDICATION: vomiting, diarrhea and SOB TECHNIQUE: 4 views COMPARISON: 08/13/2016 FINDINGS: There are unremarkable bowel gas and stool patterns. There is no obstructive bowel pattern. There is no evidence of large volume free abdominal gas. There is no evidence of organomegaly. The lungs are grossly clear. There is no discrete pleural fluid collection or pneumothorax. The cardiomediastinal silhouette and central vasculature are grossly unremarkable. IMPRESSION: No evidence of acute pathology by plain radiograph. Electronically signed by Ran Haddad 01/17/2019 3:27 PM 01/17/19 1527 Interpreting Physician: Ran Haddad MD Dictated Date/Time: 01/17/19 1526 cc: Preet Alatorre MD; Joseluis Baptiste Jr, MD) - CT/MRI 1 CT Study: Head Impression: See EMR Report ([facility] - [address] [facility], [address], [place] [address] [facility] - [address] , [place] [address] Department of Imaging [facility] Date: 01[facility]17[facility]#: [id number] : 1960DM Status: REG ERAcct#: [id number] Age/Sex: 58/MRoom/Bed: Loc: ED Ordering Physician: Preet Alatorre MD Family Physician: Joseluis Baptiste Jr, MD Reason for Procedure: headache Signed EXAM: CT HEAD W/O CONTRAST INDICATION: headache TECHNIQUE: This exam was performed using automated exposure control, adjustment of mA or kV according to patient size, and/or use of iterative reconstruction technique. COMPARISON: 08/13/2016 FINDINGS: There is no definite acute infarct given the limited sensitivity of CT versus MRI. There is no discrete intracranial mass, mass effect, or intracranial hemorrhage. There is trace chronic sphenoid sinus mucosal thickening. Surrounding soft tissues and bony structures are essentially unremarkable, otherwise. IMPRESSION: No evidence of acute intracranial pathology. Electronically signed by Ran Haddad 01/17/2019 3:08 PM 01/17/19 1508 Interpreting Physician: Ran Haddad MD Dictated Date/Time: 01/17/19 1504 cc: Preet Alatorre MD; Joseluis Baptiste Jr, MD) 2 CT Study: Abdomen, Pelvis Impression: See EMR Report - CHANGE OF SHIFT REPORT (ED Provider) 1 Report Given and Care Transferred to:: Feng Time of Transfer: 19:02 Items Pending: CT/MRI Results <Preet Alatorre - Last Filed: 01/17/19 19:01> - PLAN OF CARE/RESULTS Progress/Plan/Lab Results: Vital Signs - 8 hr 01/17/19 13:29 01/17/19 15:30 01/17/19 15:31 Temperature 98.0 F Pulse Rate 89 Pulse Rate [Sitting] Pulse Rate [Standing] Pulse Rate [Supine] Respiratory Rate 20 Blood Pressure 141/89 116/71 108/65 Blood Pressure [Sitting] Blood Pressure [Standing] Blood Pressure [Supine] O2 Sat by Pulse Oximetry 97 93 L 95 01/17/19 15:33 01/17/19 15:34 01/17/19 16:00 Temperature Pulse Rate Pulse Rate [Sitting] 76 Pulse Rate [Standing] 78 Pulse Rate [Supine] 72 Respiratory Rate Blood Pressure 91/60 Blood Pressure [Sitting] 108/65 Blood Pressure [Standing] 91/60 Blood Pressure [Supine] 116/71 O2 Sat by Pulse Oximetry 96 95 01/17/19 17:00 01/17/19 17:16 01/17/19 17:20 Temperature Pulse Rate Pulse Rate [Sitting] Pulse Rate [Standing] Pulse Rate [Supine] Respiratory Rate Blood Pressure 118/72 Blood Pressure [Sitting] Blood Pressure [Standing] Blood Pressure [Supine] O2 Sat by Pulse Oximetry 95 97 96 01/17/19 17:30 01/17/19 17:32 01/17/19 17:40 Temperature Pulse Rate Pulse Rate [Sitting] Pulse Rate [Standing] Pulse Rate [Supine] Respiratory Rate Blood Pressure 113/76 Blood Pressure [Sitting] Blood Pressure [Standing] Blood Pressure [Supine] O2 Sat by Pulse Oximetry 96 96 96 01/17/19 18:23 01/17/19 18:30 01/17/19 18:32 Temperature Pulse Rate Pulse Rate [Sitting] Pulse Rate [Standing] Pulse Rate [Supine] Respiratory Rate Blood Pressure 122/67 Blood Pressure [Sitting] Blood Pressure [Standing] Blood Pressure [Supine] O2 Sat by Pulse Oximetry 93 L 96 95 01/17/19 18:40 01/17/19 18:50 01/17/19 19:00 Temperature Pulse Rate Pulse Rate [Sitting] Pulse Rate [Standing] Pulse Rate [Supine] Respiratory Rate Blood Pressure Blood Pressure [Sitting] Blood Pressure [Standing] Blood Pressure [Supine] O2 Sat by Pulse Oximetry 96 96 96 01/17/19 19:02 01/17/19 19:10 01/17/19 19:20 Temperature Pulse Rate Pulse Rate [Sitting] Pulse Rate [Standing] Pulse Rate [Supine] Respiratory Rate Blood Pressure 114/71 Blood Pressure [Sitting] Blood Pressure [Standing] Blood Pressure [Supine] O2 Sat by Pulse Oximetry 96 96 96 01/17/19 19:30 01/17/19 19:32 01/17/19 20:44 Temperature Pulse Rate Pulse Rate [Sitting] 69 Pulse Rate [Standing] 75 Pulse Rate [Supine] 68 Respiratory Rate Blood Pressure 139/70 Blood Pressure [Sitting] 149/84 Blood Pressure [Standing] 135/91 Blood Pressure [Supine] 143/85 O2 Sat by Pulse Oximetry 97 96 01/17/19 14:52 Influenza Screen - Final Nasopharyngeal Laboratory Results - last 24 hr 01/17/19 01/17/19 01/17/19 13:34 14:35 14:35 WBC RBC Hgb Hct MCV MCH MCHC RDW Std Deviation Plt Count MPV Immature Gran % (Auto) Neut % (Auto) Lymph % (Auto) Kidder % (Auto) Eos % (Auto) Baso % (Auto) Immature Gran # (Auto) Neut # (Auto) Lymph # (Auto) Kidder # (Auto) Eos # (Auto) Baso # (Auto) PT INR PTT (Actin FS) Specimen Type Sample Site pH pCO2 pO2 HCO3 Base Excess Oxyhemoglobin ABG O2 Sat (Calculated) ABG O2 Saturation ABG Carboxyhemoglobin ABG Methemoglobin Jaquan Test A-a O2 Difference Total Hemoglobin Lactate Blood Gas Modality FiO2 % Sodium Potassium Chloride Carbon Dioxide Anion Gap BUN Creatinine Estimated GFR/1.73 m2 BUN/Creatinine Ratio Glucose POC Glucose 298 H Calculated Osmolality Calcium Magnesium Total Bilirubin AST ALT Alkaline Phosphatase Creatine Kinase Troponin T Ema-M-Qdlgfarvpnt Pept Total Protein Albumin Globulin Albumin/Globulin Ratio Lipase Plasma Lactate 2.6 H TSH 4.74 H Urine Source Urine Color Urine Turbidity Urine pH Ur Specific [place] Urine Protein Ur Glucose (Stick) Ur Ketones (Stick) Urine Blood Urine Nitrite Urine Bilirubin Urobilinogen Dipstick Urine Leukocytes Urine WBC (Auto) Urine RBC (Auto) U Epithel Cells (Auto) Urine Bacteria (Auto) Acetone Level 01/17/19 01/17/19 01/17/19 14:39 14:39 14:39 WBC 8.30 RBC 4.98 Hgb 14.7 Hct 43.3 MCV 86.9 MCH 29.5 MCHC 33.9 RDW Std Deviation 13.7 Plt Count 297 MPV 10.3 Immature Gran % (Auto) 0.2 Neut % (Auto) 64.8 Lymph % (Auto) 24.9 Kidder % (Auto) 7.7 Eos % (Auto) 1.8 Baso % (Auto) 0.6 Immature Gran # (Auto) 0.02 Neut # (Auto) 5.37 Lymph # (Auto) 2.07 Kidder # (Auto) 0.64 H Eos # (Auto) 0.15 Baso # (Auto) 0.05 PT INR PTT (Actin FS) Specimen Type Sample Site pH pCO2 pO2 HCO3 Base Excess Oxyhemoglobin ABG O2 Sat (Calculated) ABG O2 Saturation ABG Carboxyhemoglobin ABG Methemoglobin Jaquan Test A-a O2 Difference Total Hemoglobin Lactate Blood Gas Modality FiO2 % Sodium 135 L Potassium 4.4 Chloride 99 Carbon Dioxide 21 L Anion Gap 15 BUN 18 Creatinine 1.4 H Estimated GFR/1.73 m2 52 BUN/Creatinine Ratio 13 Glucose 316 H POC Glucose Calculated Osmolality 284 Calcium 9.9 Magnesium 1.9 Total Bilirubin 0.59 AST 17 ALT 23 Alkaline Phosphatase 118 Creatine Kinase 46 Troponin T Ulj-Z-Pwqrfhqrcfz Pept 25 Total Protein 7.3 Albumin 4.2 Globulin 3.1 Albumin/Globulin Ratio 1.4 Lipase 42 Plasma Lactate TSH Urine Source Urine Color Urine Turbidity Urine pH Ur Specific [place] Urine Protein Ur Glucose (Stick) Ur Ketones (Stick) Urine Blood Urine Nitrite Urine Bilirubin Urobilinogen Dipstick Urine Leukocytes Urine WBC (Auto) Urine RBC (Auto) U Epithel Cells (Auto) Urine Bacteria (Auto) Acetone Level NEGATIVE 01/17/19 01/17/19 01/17/19 14:39 14:39 14:42 WBC RBC Hgb Hct MCV MCH MCHC RDW Std Deviation Plt Count MPV Immature Gran % (Auto) Neut % (Auto) Lymph % (Auto) Kidder % (Auto) Eos % (Auto) Baso % (Auto) Immature Gran # (Auto) Neut # (Auto) Lymph # (Auto) Kidder # (Auto) Eos # (Auto) Baso # (Auto) PT 13.2 INR 0.99 PTT (Actin FS) 25.2 Specimen Type ARTERIAL Sample Site L RADIAL pH 7.40 pCO2 34 L pO2 81 HCO3 22.6 Base Excess -2.9 Oxyhemoglobin 94.7 L ABG O2 Sat (Calculated) 20.9 ABG O2 Saturation 96.7 ABG Carboxyhemoglobin 1.30 ABG Methemoglobin 0.8 Jaquan Test YES A-a O2 Difference 26.0 Total Hemoglobin 15.7 Lactate 2.80 H Blood Gas Modality ROOM AIR FiO2 % 21.0 Sodium Potassium Chloride Carbon Dioxide Anion Gap BUN Creatinine Estimated GFR/1.73 m2 BUN/Creatinine Ratio Glucose POC Glucose Calculated Osmolality Calcium Magnesium Total Bilirubin AST ALT Alkaline Phosphatase Creatine Kinase Troponin T < 0.010 Gth-C-Ijrdewoulxj Pept Total Protein Albumin Globulin Albumin/Globulin Ratio Lipase Plasma Lactate TSH Urine Source Urine Color Urine Turbidity Urine pH Ur Specific [place] Urine Protein Ur Glucose (Stick) Ur Ketones (Stick) Urine Blood Urine Nitrite Urine Bilirubin Urobilinogen Dipstick Urine Leukocytes Urine WBC (Auto) Urine RBC (Auto) U Epithel Cells (Auto) Urine Bacteria (Auto) Acetone Level 01/17/19 14:49 WBC RBC Hgb Hct MCV MCH MCHC RDW Std Deviation Plt Count MPV Immature Gran % (Auto) Neut % (Auto) Lymph % (Auto) [place] % (Auto) Eos % (Auto) Baso % (Auto) Immature Gran # (Auto) Neut # (Auto) Lymph # (Auto) Kidder # (Auto) Eos # (Auto) Baso # (Auto) PT INR PTT (Actin FS) Specimen Type Sample Site pH pCO2 pO2 HCO3 Base Excess Oxyhemoglobin ABG O2 Sat (Calculated) ABG O2 Saturation ABG Carboxyhemoglobin ABG Methemoglobin Jaquan Test A-a O2 Difference Total Hemoglobin Lactate Blood Gas Modality FiO2 % Sodium Potassium Chloride Carbon Dioxide Anion Gap BUN Creatinine Estimated GFR/1.73 m2 BUN/Creatinine Ratio Glucose POC Glucose Calculated Osmolality Calcium Magnesium Total Bilirubin AST ALT Alkaline Phosphatase Creatine Kinase Troponin T Dyu-L-Xrsnmowerhm Pept Total Protein Albumin Globulin Albumin/Globulin Ratio Lipase Plasma Lactate TSH Urine Source CLEAN CATCH Urine Color YELLOW Urine Turbidity CLEAR Urine pH 6.0 Ur Specific [place] 1.027 Urine Protein 50 A Ur Glucose (Stick) 300 A Ur Ketones (Stick) NEGATIVE Urine Blood NEGATIVE Urine Nitrite NEGATIVE Urine Bilirubin NEGATIVE Urobilinogen Dipstick NORMAL Urine Leukocytes NEGATIVE Urine WBC (Auto) <10 Urine RBC (Auto) <10 U Epithel Cells (Auto) <10 Urine Bacteria (Auto) NEGATIVE Acetone Level Orders Category Date Time Status ED: Orthostatic Vital Signs (E DIRECTED Care 01/17/19 20:05 Active ED: Orthostatic Vital Signs (E as directed Care 01/17/19 14:17 Active Finger Stick Blood Sugar (ED) DIRECTED Care 01/17/19 20:42 Active Nursing- Obtain EKG once Care 01/17/19 14:12 Active Saline Loc NOW Care 01/17/19 14:[address] ABD/PELVIS W/IV CONT ONLY [CT] Stat Exams 01/17/19 16:[address] HEAD W/O CONTRAST [CT] Stat Exams 01/17/19 14:14 Completed FLAT/UPRIGHT ABD/1 VIEW CHEST [RAD] Stat Exams 01/17/19 14:14 Completed ABG [RESP] Routine Lab 01/17/19 14:42 Completed ACETONE SERUM [CHEM] Stat Lab 01/17/19 14:39 Completed BLOOD CULTURE [BLDCUL] Stat Lab 01/17/19 16:40 Results CBC WITH ELECTRONIC DIFF [HEME] Stat Lab 01/17/19 14:39 Completed CK PROFILE [SP CHEM] [facility] 01/17/19 14:39 Completed COMPREHENSIVE METABOLIC PANEL [CHEM] [facility] 01/17/19 14:39 Completed INFLUENZA SCREEN A/B [facility] 01/17/19 14:52 Completed LACTATE, PLASMA [CHEM] [facility] 01/17/19 14:35 Completed LIPASE [CHEM] [facility] 01/17/19 14:39 Completed MAGNESIUM [CHEM] [facility] 01/17/19 14:39 Completed PRO B-NATRIURETIC PEPTIDE [facility] 01/17/19 14:39 Completed PROTIME WITH INR [COAG] Stat [facility] 01/17/19 14:39 Completed PTT [COAG] Stat [facility] 01/17/19 14:39 Completed TROPONIN T [facility] 01/17/19 14:39 Completed TSH [facility] 01/17/19 14:35 Completed URINALYSIS W/POSS RFLX CULT [URINALYSIS] Stat [facility] 01/17/19 14:49 Completed 0.9% Sodium Chloride Inj [Ns] 1,000 ml Med 01/17/19 14:15 Discontinued IV 999 mls/hr 0.9% Sodium Chloride Inj [Ns] 1,000 ml Med 01/17/19 16:27 Discontinued IV 999 mls/hr Insulin Human Regular [Humulin R] Med 01/17/19 16:27 Discontinued 10 unit IV NOW ONE Ketorolac [Toradol] Med 01/17/19 14:15 Discontinued 15 mg IV NOW ONE Ondansetron [Zofran] Med 01/17/19 14:15 Discontinued 4 mg IV NOW ONE Piperacillin/Tazobactam [Zosyn] 4.5 gm Med 01/17/19 16:27 Discontinued 0.9% Sodium Chloride Inj [Ns] 100 ml IV NOW EKG [EKG] Stat Ther 01/17/19 14:12 Draft Result Diagrams: 01/17/19 14:39 01/17/19 14:39 - CONSULTS/PCP/HOSPITALIST Notification #1 *Consult/PCP/Hospitalist*: Dr Aparicio Time Discussed: 20:45 Consult Disposition: Will see in ED, Admit <Zachary Toney - Last Filed: 01/17/19 20:46> Departure <Preet Alatorre - Last Filed: 01/17/19 19:01> - Departure Date of Disposition Decision: 01/17/19 Time of Disposition Decision: 20:45 Certified Medical Emergency: Emergent - Critical Care Note This patient required my direct & personal management of CC.: No <Zachary Toney - Last Filed: 01/17/19 20:46> - Departure DIAGNOSIS: Dehydration, Intractable nausea and vomiting, Uncontrolled diabetes mellitus Disposition: ADMITTED INPATIENT 09 Condition: Fair Referrals and Follow-Ups: Joseluis Baptiste Jr, MD [Primary Care Provider] - Attestation - Physician/ LULY Attestation Patient care was provided by Advanced Practice Provider:: No The physician spent face to face time with patient:: Yes Advanced Practice Provider documentation review:: Supervising physician onsite and consulted in the evaluation and care of this patient. The physician did have a face to face encounter with the patient. <Preet Alatorre - Last Filed: 01/17/19 19:01> - Physician/ LULY Attestation Patient care was provided by Advanced Practice Provider:: No The physician spent face to face time with patient:: Yes Advanced Practice Provider documentation review:: Supervising physician onsite and consulted in the evaluation and care of this patient. The physician did have a face to face encounter with the patient. <Zachary Toney. - Last Filed: 01/17/19 20:46> This chart was documented by the indicated scribe, (Nick De Luna, Scribanila) and accurately reflects the services I performed and decisions made by me, Preet Alatorre MD, as attested by the provider's signature.
--- NOTE | 2019-01-17 19:06 | Diag Imaging Result Doc PS360 ---
EXAM: CT ABD/PELVIS W/IV CONT ONLY - 01/17/2019 HISTORY: colitis TECHNIQUE: CT abdomen/pelvis with intravenous contrast. No oral contrast administered per request of the referring provider. COMPARISON: None. FINDINGS: The liver is of mildly decreased attenuation diffusely consistent with fatty infiltration. There is no focal liver lesion identified. There are no substantial analysis of the spleen, adrenal glands, pancreas, or kidneys identified. There are no calcified gallstones or pericholecystic inflammation identified. There is no evidence of bowel obstruction. The appendix by history is surgically absent. There is no substantial bowel wall thickening identified. There is no free air, free fluid, or abscess identified. The visualized lung bases appear clear. There are no substantially enlarged lymph nodes identified. IMPRESSION: Mild fatty infiltration of liver. No evidence of focal liver lesion. No other visible acute process in the abdomen or pelvis. No obvious colitis. This exam was performed using automated exposure control, adjustment of mA or kV according to patient size, and/or use of iterative reconstruction technique. Electronically signed by Lloyd Luciano 01/17/2019 7:04 PM
--- NOTE | 2019-01-17 22:37 | HISTORY AND PHYSICAL ---
PRIMARY CARE PHYSICIAN: Joseluis Baptiste Jr., MD CHIEF COMPLAINT: Intractable nausea, vomiting and diarrhea x1 week. HISTORY OF PRESENTING ILLNESS: A 58-year-old male with a history of diabetes mellitus type 2, hypertension and hyperlipidemia, who presented to the emergency department with a 1-week history of having worsening nausea, vomiting and diarrhea. The patient states that he was having several bouts of diarrhea and it was not subsiding. He was getting nauseated and vomiting. The patient was seen in the ER, and due to his presenting symptoms it was thought that we will place him in observation for further evaluation and management. At the time of my examination the patient denied any headache, fever, chills, chest pain, shortness of breath, hemoptysis, melena or weight changes, but complained of nausea, vomiting and diarrhea. PAST MEDICAL HISTORY: Includes diabetes mellitus type 2, hypertension, hyperlipidemia. PAST SURGICAL HISTORY: Appendectomy. ALLERGIES: No known drug allergies. CURRENT MEDICATIONS: Carvedilol 25 mg p.o. b.i.d.; Flexeril 10 mg p.o. q.8 hours; diltiazem 180 mg p.o. q.p.m.; glipizide 5 mg p.o. daily; Novolin 70/30, 30 units subcutaneously at bedtime; lisinopril 10 mg p.o. daily; lovastatin 40 mg p.o. daily; metformin 850 mg p.o. t.i.d.; sertraline 50 mg p.o. daily. SOCIAL HISTORY: Former smoker. Admits to social alcohol use. Denies any illicit drug use. FAMILY HISTORY: No history of coronary artery disease. REVIEW OF SYSTEMS: Fourteen point review of systems is as per HPI. Other systems negative. PHYSICAL EXAMINATION: GENERAL: Cooperative, friendly male. He is resting comfortably now. VITAL SIGNS: Temperature 98 degrees, pulse 89, respirations 20, blood pressure 141/89, saturating 97%. HEENT: Atraumatic, normocephalic. Extraocular movements intact. PERRLA. NECK: Supple. CHEST: Clear to auscultation. CARDIOVASCULAR: Regular rate and rhythm. S1, S2. ABDOMEN: Soft, obese, positive bowel sounds. EXTREMITIES: No edema. NEUROLOGIC: He is awake, alert and oriented x3. GENITOURINARY: No bladder distention. SKIN: Warm. LABORATORY DATA: WBCs 8.30, hemoglobin 14.7, hematocrit 43.3, platelets 297,000. Sodium 135, potassium 4.4, chloride 99, CO2 is 21, BUN is 18, creatinine is 1.4, glucose is 316. ASSESSMENT: This is a 58-year-old male with a history of diabetes mellitus type 2, hypertension and hyperlipidemia, who presented to the emergency department with 1-week history of having worsening nausea, vomiting and diarrhea. The patient states that his symptoms were not subsiding and subsequently had come to the emergency department. He was evaluated in the emergency department and due to his presenting symptoms, we will place him for observation, for further evaluation and management. 1. Intractable nausea, vomiting and diarrhea. 2. Diabetes mellitus type 2. 3. Hypertension. PLAN: 1. We will admit the patient to the medical floor with telemetry. 2. Continue supportive treatment with IV fluids, antiemetics. 3. We will check stool studies. 4. Monitor blood glucose and put the patient on glycemic protocol with sliding scale insulin regimen. 5. We will monitor blood pressure and resume antihypertensive agent. 6. Put patient on DVT prophylaxis with SCDs. 7. We will continue to follow, reassess and make further recommendation based on the patient's clinical course. cc: Justin Aparicio MD
[2019-01-18] MEDS ORDERED: ZOFRAN IV PRN (00:11)
[2019-01-18] MEDS: TYLENOL PO PRN (00:36)
[2019-01-18] MEDS: NS 1,000 ML IV SCH ×3 (01:59→20:56)
[2019-01-18] MEDS: HUMULIN R SUBQ SCH ×4 (07:23→20:57)
[2019-01-18 08:10] LABS: BASO# 0.04 X1000 (0.0-0.2); BASO% 0.6 % (0.0-0.8); EOS# 0.19 X1000 (0.0-0.7); EOS% 2.7 % (0.0-10.0); HEMATOCRIT 40.8 % (42.0-52.0); HEMOGLOBIN 13.7 g/dL (14.0-18.0); IMM GRAN# 0.02 X1000 (0.0-0.04); IMM GRAN% 0.3 % (0.0-0.5); LYMPH# 2.08 X1000 (1.2-3.4); LYMPH% 29.8 % (20.5-51.1); MCH 29.8 PG (27-31); MCHC 33.6 g/dL (33-37); MCV 88.9 FL (81-99); MONO# 0.57 X1000 (0.11-0.59); MONO% 8.2 % (1.7-9.3); MPV 9.9 FL (7.4-10.4); NEUT# 4.07 X1000 (1.4-6.5); NEUT% 58.4 % (42.2-75.2); PLT 234 X1000 (130-400); RBC 4.59 XMIL (4.7-6.1); RDW 13.7 % (11.5-14.5); WBC 6.97 X1000 (4.8-10.8)
[2019-01-18 08:38] LABS: AGAP 11; BUN 15 mg/dL (8-22); CALCIUM 9.6 mg/dL (8.8-10.2); CHLORIDE 100 mmol/L (98-107); COSMO 276; CREATININE 1.2 mg/dL (0.7-1.2); ESTIMATED GFR > 60; GLUCOSE 183 mg/dL (70-104); POTASSIUM 4.2 mmol/L (3.5-5.1); SODIUM 135 mmol/L (136-145); TCO2 24 mmol/L (25-35)
[2019-01-18] MEDS: COREG PO SCH ×2 (08:41→20:57)
[2019-01-18] MEDS: ZOLOFT PO SCH (08:41)
[2019-01-18] MEDS: PRINIVIL PO SCH (08:41)
--- NOTE | 2019-01-18 12:22 | PROGRESS NOTE ---
DATE: 01/18/2019 SUBJECTIVE: This morning Mr. Farrar appears to be doing a lot better. Has not had any more diarrhea. He feels like he will be able to tolerate his diet. OBJECTIVE: Vital Signs: Blood pressure is 130/71, pulse 64, respirations 16, temperature is 98.1 degrees. The patient is saturating 96% on room air. General: Mr. Farrar is a 58-year-old male. He is in bed. He is morbidly obese with BMI of 41.0. He is not in any distress. HEENT: Mucosa is pink and moist. Anicteric, acyanotic. Neck: Supple. Chest: Clear to auscultation. No crepitations. No rhonchi. Cardiovascular: Regular rate and rhythm. No murmurs, no rubs, no gallops. GI: Abdomen is soft, globally distended but nontender. Bowel sounds present. There is an old right lower quadrant previous scar from appendectomy. Extremities: No pedal edema. SET UP MACHINIST: Patient is awake, alert, oriented. There is no focal neurological deficit. LABORATORY DATA: Laboratory data has been reviewed. WBC is 6.97, hemoglobin is 13.7, platelet count of 234. Chemistry is also reviewed and is unremarkable. Glucose is 183. IMAGING STUDIES: Have all been reviewed. CT scan of the abdomen and pelvis only showed mildly fatty infiltration of the liver. CT scan of the head is unremarkable. ASSESSMENT: 1. Intractable nausea and vomiting associated with diarrhea. This is concerning for viral gastroenteritis. This is improved. We will start the patient on diabetic diet and continue baseline hydration. Stool studies have been ordered to rule out any bacterial infection. 1. Diabetes mellitus type 2, stable. 2. Hypertension, controlled. 3. Morbid obesity with BMI of 41.0. Weight management has been advised. cc: Cruzito Esparza MD
[2019-01-18] MEDS ORDERED: CARDIZEM CD PO SCH (21:00)
[2019-01-18] MEDS ORDERED: MEVACOR PO SCH (21:00)
[2019-01-19] MEDS: HUMULIN R SUBQ SCH (06:05)
[2019-01-19] MEDS: TYLENOL PO PRN (06:16)
[2019-01-19 07:23] LABS: BASO# 0.04 X1000 (0.0-0.2); BASO% 0.5 % (0.0-0.8); EOS# 0.26 X1000 (0.0-0.7); HEMATOCRIT 38.5 % (42.0-52.0); HEMOGLOBIN 12.9 g/dL (14.0-18.0); LYMPH# 2.73 X1000 (1.2-3.4); LYMPH% 31.7 % (20.5-51.1); MCH 30.4 PG (27-31); MCHC 33.5 g/dL (33-37); MCV 90.8 FL (81-99); MONO# 0.71 X1000 (0.11-0.59); MONO% 8.2 % (1.7-9.3); MPV 10.5 FL (7.4-10.4); NEUT# 4.87 X1000 (1.4-6.5); NEUT% 56.6 % (42.2-75.2); PLT 234 X1000 (130-400); RBC 4.24 XMIL (4.7-6.1); RDW 13.8 % (11.5-14.5); WBC 8.61 X1000 (4.8-10.8)
[2019-01-19 07:26] VITALS: BP 123/68
[2019-01-19 08:24] LABS: ESTIMATED GFR > 60
[2019-01-19 08:32] LABS: AGAP 17; BUN 10 mg/dL (8-22); CHLORIDE 105 mmol/L (98-107); COSMO 276; CREATININE 1.1 mg/dL (0.7-1.2); GLUCOSE 227 mg/dL (70-104); POTASSIUM 4.6 mmol/L (3.5-5.1); SODIUM 135 mmol/L (136-145); TCO2 13 mmol/L (25-35)
[2019-01-19 08:33] LABS: ALBUMIN 3.1 g/dL (3.5-5.0); ALKALINE PHOSPHATASE 97 U/L (32-122); CALCIUM 8.7 mg/dL (8.8-10.2); GOT 20 U/L (10-34); GPT 18 U/L (10-44); TOTAL BILIRUBIN 0.31 mg/dL (0.20-1.00); TOTAL PROTEIN 6.3 g/dL (6.3-8.3)
[2019-01-19] MEDS: COREG PO SCH (10:01)
[2019-01-19] MEDS: ZOLOFT PO SCH (10:01)
[2019-01-19] MEDS: PRINIVIL PO SCH (10:01)
--- NOTE | 2019-01-19 20:18 | DISCHARGE SUMMARY ---
ADMISSION DATE: 01/17/2019 DISCHARGE DATE: 01/19/2019 DISPOSITION: Home. FOLLOW-UP: Dr. Joseluis Baptiste. CONSULTATION DURING THIS ADMISSION: None. IMAGING STUDIES OF SIGNIFICANCE: A KUB showed no evidence of acute pathology by plain x-ray. A head CT scan showed no evidence of acute intracranial pathology. Abdomen and pelvis CT scan to rule out colitis was negative. There was mild fatty infiltration of the liver. ADMISSION DIAGNOSIS: 1. Intractable nausea and vomiting and diarrhea. 2. Diabetes mellitus. 3. Hypertension. DIAGNOSIS AT THE TIME OF DISCHARGE: 1. Acute gastroenteritis, presumably viral. 2. Diabetes mellitus, controlled. 3. Hypertension. 4. Mild fatty liver disease. 5. Obesity with BMI of 41.0 with management advised. DISCHARGE MEDICATIONS: 1. Glipizide 5 mg p.o. daily. 2. Metformin 850 p.o. 3 times per day. 3. Insulin 70/30, 30 units subcutaneous at bedtime. 4. Lovastatin 40 mg p.o. at bedtime. 5. Sertraline 50 mg p.o. daily. 6. Carvedilol 25 mg b.i.d. 7. Cardizem 180 p.o. daily. 8. Lisinopril 10 mg p.o. daily. PRESENTING COMPLAINT: Intractable nausea vomiting and diarrhea for week. HISTORY OF PRESENTING COMPLAINT: Mr. Farrar is a 58-year-old male who has history of diabetes, hypertension, obesity, presented to the emergency department because of abdominal pain, nausea, vomiting and diarrhea. The patient was found to be volume depleted, was admitted for medical care. HOSPITAL COURSE: Mr. Farrar did improve with adequate IV resuscitation. His flu testing was negative. Blood culture came back 48 hours negative. The diarrhea resolved. The patient did have only 1 bowel movement today and he reported it to be a little harder than days before. He has been tolerating his diet and we think he is now stable for discharge. Mr. Farrar will follow up with his primary care doctor. All the discharge instructions have been discussed with him. He voiced understanding. Time spent for discharge is 35 minutes. At the time of discharge, the patient vitals: Blood pressure was 123/68, pulse of 61, respirations 17, temperature 97.7 degrees. The patient was saturating 99% on room air. cc: Cruzito Esparza MD
== END 2019-01-19 10:58 | disposition home or self-care (01) ==
LOC: ED 13:27 → 3N 22:15 → SUATTDRO 22:15 → INTOOBSV 22:15
PROVIDERS: ATTEND Internal Medicine